=== PATIENT | male | born 1980 | race Caucasian/White ===

== ENCOUNTER 2016-12-02 12:23 | Emergency (ER) | payer SELFPAY ==
--- NOTE | 2016-12-02 14:43 | RAD ---
HISTORY: Right wrist pain COMPARISONS: None VIEWS: 3, Frontal, lateral, and oblique views of the right wrist FINDINGS: BONE DENSITY: Normal. BONES: There is no displaced fracture. JOINTS: There is no arthropathy. ALIGNMENT: There is no dislocation. SOFT TISSUES: Unremarkable. OTHER FINDINGS: None. IMPRESSION: NO ACUTE OSSEOUS INJURY. IF SYMPTOMS PERSIST, RECOMMEND REPEAT IMAGING.
--- NOTE | 2016-12-02 15:05 | UC ---
Upper Extremity HPI - HPI Summary HPI Summary: Patient presents to the with CC right wrist pain after an object fell atop the hand and he hyperextended the wrist. He states his wrist is not painful upon flexion and extension but pain with rotation of the wrist. Denies numbness , tingling, color or temperature changes. He has never injured the wrist before. Denies other symptoms. Cap refill < 2 sec. Pulses intact + 2 bilaterally. - History of Current Complaint Chief Complaint: UCUpperExtremity Stated Complaint: WRIST INJURY Time Seen by Provider: 12/02/16 14:22 Hx Obtained From: Patient ?: No Onset/Duration: Sudden Onset Severity Initially: Mild Severity Currently: Mild Pain Intensity: 2 Pain Scale Used: 0-10 Numeric Location Of Pain: Is Discrete @ - right lateral wrist Aggravating Factor(s): Internal/External Rotation Alleviating Factor(s): Nothing Associated Signs And Symptoms: Positive: Negative - Risk Factors Non-Orthopedic Risk Factor: Negative DVT Risk Factors: Negative Septic Arthritis Risk Factor: Negative Compartment Syndrome Risk Factors: Pain - Allergies/Home Medications Allergies/Adverse Reactions: Allergies Allergy/AdvReac Type Severity Reaction Status Date / Time No Known Allergies Allergy Verified 12/02/16 13:56 Home Medications: Home Medications NK [No Home Medications Reported] 12/02/16 [History Confirmed 12/02/16] PMH/Surg Hx/FS Hx/Imm Hx Previously Healthy: Yes - Surgical History Surgical History: None - Social History Occupation: Employed Part-time Lives: With Family Alcohol Use: None Substance Use Type: None Smoking Status (MU): Never Smoked Tobacco Review of Systems Constitutional: Negative Skin: Negative Respiratory: Negative Cardiovascular: Negative Motor: Negative Neurovascular: Negative Musculoskeletal: Arthralgia - right lateral wrist Neurological: Negative Psychological: Negative Is Patient Immunocompromised?: No All Other Systems Reviewed And Are Negative: Yes Physical Exam Triage Information Reviewed: Yes Appearance: Well-Appearing, Well-Nourished Vital Signs: Initial Vital Signs Temp 98.4 F 12/02/16 13:56 Pulse 63 12/02/16 13:56 Resp 16 12/02/16 13:56 BP 112/64 12/02/16 13:56 Pulse Ox 100 12/02/16 13:56 Vital Signs Reviewed: Yes Eye Exam: Normal Eyes: Positive: Conjunctiva Clear Neck exam: Normal Neck: Positive: Supple, No Lymphadenopathy Respiratory Exam: Normal Respiratory: Positive: Chest non-tender Cardiovascular Exam: Normal Cardiovascular: Positive: RRR Musculoskeletal Exam: Normal Musculoskeletal: Positive: Strength Intact Neurological Exam: Normal Neurological: Positive: Alert Psychological: Positive: Normal Response To Family Skin Exam: Normal Upper Extremity Course/Dx - Course Course Of Treatment: right lateral wrist pain after hyperextending the wrist. no pain over anatomical snuff box. no pain with flexion and extension. xray negative for acute findings. patient is declining kassandra wrap. he is given return precautions, care instructions and follow up with ortho. He is Ok with discharge. - Differential Dx/Diagnosis Differential Diagnosis/HQI/PQRI: Fracture (Open), Fracture (Closed), Strain, Sprain Provider Diagnoses: Wrist Strain - Right Discharge - Discharge Plan Condition: Stable Disposition: HOME Patient Education Materials: Wrist Sprain (ED) Referrals: No Primary Care Phys,NOPCP [Primary Care Provider] - Sera Bliss MD [Medical Doctor] - Additional Instructions: Ibuprofen 600mg three times daily You likely injured the muscles around the wrist - this will take time to heal Rest and ice will help heal the area If your symptoms persist of worsen - return to the or follow up with ortho
== END 2016-12-02 14:55 | disposition home or self-care (01) ==
LOC: UCEAST 12:23
DX: S66.911A Strain of unspecified muscle, fascia and tendon at wrist and hand level, right hand, initial encounter (principal); W22.8XXA Striking against or struck by other objects, initial encounter
CPT/HCPCS: 99201; G0463